=== PATIENT | female | born 1965 | race African-American/Black ===

== ENCOUNTER 2017-03-07 14:58 | Emergency (ER) | payer OTHER ==
[~2017-03-07] VITALS: Ht 154.9 cm; Wt 122.5 kg
[~2017-03-07 14:58] MED LIST: BYSTOLIC20 MG PO; CYCL10TA2 PO; HYDR-965 PO; NAPR250T2 PO; NEBI20TA4 PO
[2017-03-07 16:14] LABS: BASO # 0.1 x10^3/uL (0.0-0.2); BASO % 1 % (0-3); EOS % 6 % (0-3); HEMATOCRIT 35.6 % (36.0-47.0); HEMOGLOBIN 11.8 g/dL (12.0-15.5); LYMPH # 1.7 x10^3/uL (1.0-4.8); LYMPH % 33 % (24-48); MEAN CORPUSCULAR HEMOGLOBIN 27 pg (25-35); MEAN CORPUSCULAR HGB CONC 33 g/dL (31-37); MEAN CORPUSCULAR VOLUME 83 fL (79-100); MONO % 11 % (0-9); NEUT % 49 % (31-73); PLATELET COUNT 264 x10^3/uL (140-400); RED CELL DISTRIBUTION WIDTH 15.9 % (11.5-14.5); WHITE BLOOD COUNT 5.2 x10^3/uL (4.0-11.0)
[2017-03-07] MEDS ORDERED: LABETALOL 20 MG/4 ML DISP.SYRIN. IVP ONE (16:15)
--- NOTE | 2017-03-07 16:29 | PHYS DOC ---
Past Medical History Past Medical History: CVA, Hypertension, Other Additional Past Medical Histor: STROKE 2010, left sided weakness, "brain aneurysm" Past Surgical History: No Surgical History Additional Past Surgical Histo: Alex in LLE Alcohol Use: None Drug Use: None Adult General Chief Complaint Chief Complaint: HYPERTENSION HPI HPI Patient is a 51 year old female who presents with headache and elevated blood pressure. Patient reports she's had a cough, denies sinus drainage. Patient states the headache is intermittent and gradual in onset, she's had similar headaches in the past. She's been on for by systolic for a week and she ran out does not follow-up appointment for several days. She denies any chest pain or shortness of breath, no known fevers. She hasn't taken anything for her headache because she didn't have anything to take. Patient sees primary care physician at Dr. Roland Review of Systems Review of Systems Constitutional: Denies fever or chills [] Eyes: Denies change in visual acuity, redness, or eye pain [] HENT: Denies nasal congestion or sore throat [] Respiratory: Reports cough, denies shortness of breath [] Cardiovascular: Denies chest pain GI: Denies abdominal pain, nausea, vomiting, bloody stools or diarrhea [] : Denies dysuria or hematuria [] Musculoskeletal: Denies back pain or joint pain [] Integument: Denies rash or skin lesions [] Neurologic: Reports headache, denies focal weakness or sensory changes [] Current Medications Current Medications Current Medications Medications (Trade) Dose Ordered Sig/[place] Start Time Stop Time Status Last Admin Dose Admin Acetaminophen (Tylenol) 1,000 mg 1X ONCE 03/07/17 16:45 03/07/17 16:46 DC Labetalol HCl (Normodyne) 10 mg 1X ONCE 03/07/17 16:15 03/07/17 16:16 DC Allergies Allergies Allergies Coded Allergies Type Severity Reaction Last Updated Verified No Known Drug Allergies 06/26/13 No Physical Exam Physical Exam Constitutional: Well developed, well nourished, no acute distress, non-toxic appearance. [] HENT: Normocephalic, atraumatic, bilateral external ears normal, oropharynx moist, no oral exudates, nose normal. [] Eyes: PERRLA, EOMI, conjunctiva normal, no discharge. [] Neck: Normal range of motion, no tenderness, supple, no stridor. [] Cardiovascular:Heart rate regular with regular rhythm, no murmur [] Lungs & Thorax: Bilateral breath sounds clear to auscultation, no wheeze or crackles Abdomen: Bowel sounds normal, soft, no tenderness, no masses, no pulsatile masses. [] Skin: Warm, dry, no erythema, no rash. [] Back: No tenderness, no CVA tenderness. [] Extremities: No tenderness, no cyanosis, no clubbing, left upper extremity with contracture secondary to previous stroke Neurologic: Alert and oriented X 3, left-sided deficit secondary to previous stroke, unable to lift left shoulder, otherwise cranial nerves II through XII intact, no facial asymmetry Psychologic: Affect normal, judgement normal, mood normal. [] Current Patient Data Vital Signs Vital Signs Date Time Temp Pulse Resp B/P (MAP) Pulse Ox O2 Delivery O2 Flow Rate FiO2 03/07/17 16:12 84 18 147/79 (101) 97 Room Air 03/07/17 15:50 98.1 98.1 Lab Values Laboratory Tests Test 03/07/17 16:05 03/07/17 16:50 White Blood Count 5.2 x10^3/uL (4.0-11.0) Red Blood Count 4.30 x10^6/uL (3.50-5.40) Hemoglobin 11.8 g/dL (12.0-15.5) L Hematocrit 35.6 % (36.0-47.0) L Mean Corpuscular Volume 83 fL (79-100) Mean Corpuscular Hemoglobin 27 pg (25-35) Mean Corpuscular Hemoglobin Concent 33 g/dL (31-37) Red Cell Distribution Width 15.9 % (11.5-14.5) H Platelet Count 264 x10^3/uL (140-400) Neutrophils (%) (Auto) 49 % (31-73) Lymphocytes (%) (Auto) 33 % (24-48) Monocytes (%) (Auto) 11 % (0-9) H Eosinophils (%) (Auto) 6 % (0-3) H Basophils (%) (Auto) 1 % (0-3) Neutrophils # (Auto) 2.6 x10^3uL (1.8-7.7) Lymphocytes # (Auto) 1.7 x10^3/uL (1.0-4.8) Monocytes # (Auto) 0.6 x10^3/uL (0.0-1.1) Eosinophils # (Auto) 0.3 x10^3/uL (0.0-0.7) Basophils # (Auto) 0.1 x10^3/uL (0.0-0.2) Sodium Level 141 mmol/L (136-145) Potassium Level 3.2 mmol/L (3.5-5.1) L Chloride Level 103 mmol/L (98-107) Carbon Dioxide Level 26 mmol/L (21-32) Anion Gap 12 (6-14) Blood Urea Nitrogen 9 mg/dL (7-20) Creatinine 0.7 mg/dL (0.6-1.0) Estimated GFR (Cockcroft-Gault) 106.3 Glucose Level 130 mg/dL (70-99) H Calcium Level 9.1 mg/dL (8.5-10.1) Urine Collection Type Unknown Urine Color Yellow Urine Clarity Turbid Urine pH 5.5 Urine Specific Mcallister 1.025 Urine Protein Negative mg/dL (NEG-TRACE) Urine Glucose (UA) Negative mg/dL (NEG) Urine Ketones (Stick) Negative mg/dL (NEG) Urine Blood Negative (NEG) Urine Nitrite Positive (NEG) Urine Bilirubin Negative (NEG) Urine Urobilinogen Dipstick 0.2 mg/dL (0.2 mg/dL) Urine Leukocyte Esterase Negative (NEG) Urine RBC 0 /HPF (0-2) Urine WBC 1-4 /HPF (0-4) Urine Squamous Epithelial Cells Mod /LPF Urine Bacteria Many /HPF (0-FEW) Urine Mucus Marked /LPF Laboratory Tests 03/07/17 16:05 Laboratory Tests 03/07/17 16:05 EKG EKG [] 86 bpm, sinus, normal axis, QTC of 465, no ST elevation or depression, nonischemic T waves, interpreted by me Radiology/Procedures Radiology/Procedures CT head: Impression: No acute intracranial abnormality is seen. [] Course & Med Decision Making Course & Med Decision Making Pertinent Labs and Imaging studies reviewed. (See chart for details) Ordered 10mg labetalol and po tylenol. Labs/CT head ordered. Pt's blood pressure improved without intervention. CT head shows no acute bleed or abnormality on CT. Mild hypokalemia, po KCl given, pt does not have dysuria and UA not clean catch so no indication to treat. Will give RX for Bystolic for 2 weeks. Harini Disclaimer Harini Disclaimer This electronic medical record was generated, in whole or in part, using a voice recognition dictation system. Departure Departure Impression: Primary Impression: Hypertension Disposition: 02 TRANSFER [facility] Condition: STABLE Referrals: SVETLANA ROLAND (PCP) Patient Instructions: Hypertension Scripts Nebivolol Hcl (BYSTOLIC) 20 Mg Tablet 20 MG PO DAILY for 14 Days, #14 TAB Prov: ROSALINDA GAGNON MD 03/07/17 ROSALINDA GAGNON MD Mar 07, 2017 16:29
[2017-03-07 16:31] LABS: CALCIUM 9.1 mg/dL (8.5-10.1); CREATININE 0.7 mg/dL (0.6-1.0); GFR 106.3; POTASSIUM 3.2 mmol/L (3.5-5.1)
--- NOTE | 2017-03-07 16:38 | RAD ---
CT scan of the head without contrast 03/07/2017 Clinical history: Headaches for 2 days. Dizziness today. Technique: Unenhanced, contiguous, 5 mm axial sections were obtained through the head. One or more of the following individualized dose reduction techniques were utilized for this study: 1. Automated exposure control. 2. Adjustment of the mA and/or kV according to patient size. 3. Use of iterative reconstruction technique. Findings: No previous imaging studies are available for comparison. There is generalized parenchymal atrophy. Areas of decreased attenuation are seen within the white matter of both cerebral hemispheres consistent with areas of small vessel ischemic disease. A large area of encephalomalacia is seen involving portions of the right temporal, right frontal and right parietal lobes. No acute parenchymal abnormality is seen. No extra-axial fluid collection is noted. No skull fracture is seen. Impression: No acute intracranial abnormality is seen.
[2017-03-07] MEDS ORDERED: ACETAMINOPHEN 500 MG TABLET PO ONE (16:45)
[2017-03-07 17:06] LABS: BILIRUBIN,URINE NEGATIVE (NEG); GLUCOSE,URINE NEGATIVE (NEG); NITRITE,URINE POSITIVE (NEG); PH,URINE 5.5; PROTEIN,URINE NEGATIVE (NEG-TRACE); UROBILINOGEN,URINE 0.2 mg/dL (0.2 mg/dL)
[2017-03-07 17:14] LABS: BACTERIA,URINE MANY /HPF (0-FEW); RBC,URINE 0 /HPF (0-2); SQUAMOUS EPITHELIAL CELL,UR MOD /LPF
[2017-03-07] MEDS ORDERED: BYSTOLIC20 MG PO (17:25)
[2017-03-07] MEDS ORDERED: POTASSIUM CHLORIDE 20 MEQ TABLET.ER. PO ONE (17:30)
[2017-03-07 17:53] VITALS: BP 144/93
--- NOTE | 2017-03-08 06:23 | EKG ---
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
--- NOTE | 2017-03-09 16:41 | VNOTE ---
CALL BACK NOTE CALL BACK Microbiology 03/07/17 Urine Culture - Final, Complete 03/07/17 Urine Culture Result 1 (NATTY) - Final, Complete 03/07/17 Antimicrobic Susceptibility - Final, Complete Patient was noted to have Klebsiella pneumoniae, patient was notified by phone with prescription called to [facility] on . Bactrim DS is sensitive to this infection. Bactrim DS was called in for the patient. ALESHIA LOOMIS APRN Mar 09, 2017 16:41
== END 2017-03-07 18:08 | disposition home or self-care (01) ==
LOC: ER 14:58
DX: I10 Essential (primary) hypertension (principal); R05 Cough; I67.1 Cerebral aneurysm, nonruptured; Z86.73 Personal history of transient ischemic attack (TIA), and cerebral infarction without residual deficits
CPT/HCPCS: 36415; 70450; 80048; 81001; 85025; 87086; 93005; 99285-25

== ENCOUNTER 2019-10-18 21:10 | Emergency (ER) | payer MEDICAID, OTHER ==
[~2019-10-18] VITALS: Ht 154.9 cm; Wt 114.0 kg
[~2019-10-18 21:10] MED LIST changes: +HYDR-3165 PO; -HYDR-965 PO; -NAPR250T2 PO; +NAPR250T6 PO
--- NOTE | 2019-10-18 21:43 | PHYS DOC ---
Past Medical History Past Medical History: CVA, Hypertension, Other Additional Past Medical Histor: STROKE 2010, left sided weakness, "brain aneurysm" Past Surgical History: No Surgical History Additional Past Surgical Histo: Alex in LLE Smoking Status: Former Smoker Alcohol Use: None Drug Use: None General Adult EDM: Chief Complaint: HEADACHE HPI: HPI: 54-year-old female presents to the emergency department complaints of bilateral lower extremity pain, left worse than right. Chronic left lower extremity that is cool, not new. Patient has chronic lower extremity pain already. She describes pain increasing over the last week. She denies any chest pain, shortness of breath, nausea, vomiting. She has a history of hypertension, diabetes, CVA with left-sided hemiparesis. Walking makes her pain worse. Patient's blood pressure is 209/76 saturations 98%, heart rate 99. Patient is afebrile. She denies any complaints other than her chronic lower extremity pain worsening over the last week as previously described. Review of Systems: Review of Systems: Constitutional: Denies fever or chills. [] Respiratory: Denies cough or shortness of breath. [] Cardiovascular: Denies chest pain or edema. [] GI: Denies abdominal pain, nausea, vomiting, bloody stools or diarrhea. [] Musculoskeletal: Bilateral lower extremity pain Integument: Denies rash. [] Neurologic: Denies headache, focal weakness or sensory changes. [] Heart Score: Risk Factors: Risk Factors: DM, Current or recent (<one month) smoker, HTN, HLP, family history of CAD, obesity. Risk Scores: Score 0 - 3: 2.5% MACE over next 6 weeks - Discharge Home Score 4 - 6: 20.3% MACE over next 6 weeks - Admit for Clinical Observation Score 7 - 10: 72.7% MACE over next 6 weeks - Early Invasive Strategies Allergies: Allergies: Allergies Coded Allergies Type Severity Reaction Last Updated Verified No Known Drug Allergies 06/26/13 No Physical Exam: PE: Constitutional: Well developed, well nourished, no acute distress, non-toxic appearance. [] Cardiovascular:Heart rate regular rhythm, no murmur [] Lungs & Thorax: Bilateral breath sounds clear to auscultation [] Abdomen: Bowel sounds normal, soft, no tenderness, no masses, no pulsatile masses. [] Skin: Warm, dry, no erythema, no rash. [] Back: No tenderness, no CVA tenderness. [] Extremities: No tenderness, positive edema bilateral lower extremities left greater than right, history of surgery left lower extremity [] Neurologic: Alert and oriented X 3, no focal deficits noted. [] Psychologic: Affect normal, judgement normal, mood normal. [] EKG: EKG: EKG reviewed, sinus rhythm, heart rate 97, left axis deviation, interpretation time 2143, no STEMI [] Radiology/Procedures: Radiology/Procedures: [] Course & Med Decision Making: Course & Med Decision Making Pertinent Labs and Imaging studies reviewed. (See chart for details) [] 54-year-old female presents to the emergency department complaints of bilateral lower extremity pain, left worse than right. Patient has chronic lower extremity pain already. She describes pain increasing over the last week. She denies any chest pain, shortness of breath, nausea, vomiting. She has a history of hypertension, diabetes, CVA with left-sided hemiparesis. Walking makes her pain worse. Patient's blood pressure is 209/76 saturations 98%, heart rate 99. Patient is afebrile. She denies any complaints other than her chronic lower extremity pain worsening over the last week as previously described. Labs and imaging reviewed Patient provided with hydralazine 10 mg IV x1 given her blood pressure elevation CPK is 200, BNP mildly elevated at 1200 Recommend follow the primary care physician as an outpatient. Recommend discharge as patient home. Harini Disclaimer: Harini Disclaimer: This electronic medical record was generated, in whole or in part, using a voice recognition dictation system. Departure Departure Impression: Primary Impression: Chronic lower limb pain Qualified Codes: M79.604 - Pain in right leg; M79.605 - Pain in left leg; G89.29 - Other chronic pain Additional Impression: Hypertension Qualified Codes: I10 - Essential (primary) hypertension Disposition: 01 HOME, SELF-CARE Condition: STABLE Referrals: SVETLANA ROLAND (PCP) Patient Instructions: Hypertension, Pain of Unknown Etiology (Pain without a known Cause) Additional Instructions: Recommend follow up with PCP No acute findings Hydralazine 10mg IV x 1 BP medication unknown by patient/famikly Labs without findings of acute process DAVID GREEN MD Oct 18, 2019 21:43
[2019-10-18 22:34] LABS: BASO % 1 % (0-3); EOS # 0.2 x10^3/uL (0.0-0.7); EOS % 5 % (0-3); HEMATOCRIT 34.5 % (36.0-47.0); HEMOGLOBIN 11.3 g/dL (12.0-15.5); LYMPH # 0.9 x10^3/uL (1.0-4.8); LYMPH % 21 % (24-48); MEAN CORPUSCULAR HEMOGLOBIN 27 pg (25-35); MEAN CORPUSCULAR HGB CONC 33 g/dL (31-37); MEAN CORPUSCULAR VOLUME 83 fL (79-100); MONO # 0.3 x10^3/uL (0.0-1.1); MONO % 6 % (0-9); NEUT # 3.1 x10^3/uL (1.8-7.7); NEUT % 68 % (31-73); PLATELET COUNT 385 x10^3/uL (140-400); RED BLOOD COUNT 4.17 x10^6/uL (3.50-5.40); RED CELL DISTRIBUTION WIDTH 15.6 % (11.5-14.5); WHITE BLOOD COUNT 4.5 x10^3/uL (4.0-11.0)
[2019-10-18 22:57] LABS: ALBUMIN 3.3 g/dL (3.4-5.0); ALBUMIN/GLOBULIN RATIO 0.6 (1.0-1.7); TOTAL PROTEIN 8.5 g/dL (6.4-8.2)
[2019-10-18 22:58] LABS: CALCIUM 9.5 mg/dL (8.5-10.1); CREATININE 0.7 mg/dL (0.6-1.0); GFR 105.1; TOTAL BILIRUBIN 0.2 mg/dL (0.2-1.0)
[2019-10-18 22:59] LABS: POTASSIUM 4.2 mmol/L (3.5-5.1)
[2019-10-18 23:00] VITALS: BP 180/90
[2019-10-18] MEDS ORDERED: hydrALAZINE 20 MG/ML VIAL. IVP ONE (23:00)
[2019-10-18] MEDS ORDERED: traMADol 50 MG TABLET PO ONE (23:00)
--- NOTE | 2019-10-19 20:10 | EKG ---
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
== END 2019-10-18 23:40 | disposition home or self-care (01) ==
LOC: ER 21:10
DX: G89.29 Other chronic pain (principal); M79.605 Pain in left leg; M79.604 Pain in right leg; I10 Essential (primary) hypertension; Z86.73 Personal history of transient ischemic attack (TIA), and cerebral infarction without residual deficits; Z87.891 Personal history of nicotine dependence
CPT/HCPCS: 36415; 80053; 82550; 83880; 85025; 93005; 96374; 99284; J0360

== ENCOUNTER 2020-08-10 21:41 | Emergency (ER) | payer MEDICAID ==
[~2020-08-10] VITALS: Ht 157.5 cm; Wt 81.8 kg
[~2020-08-10 21:41] MED LIST changes: +NAPR-699 PO; -NAPR250T6 PO
[2020-08-10] MEDS ORDERED: HYDROcodone/APAP 5/325MG 1 TAB TABLET PO ONE (22:30)
[2020-08-10 22:44] LABS: BASO % 1 % (0-3); EOS # 0.4 x10^3/uL (0.0-0.7); EOS % 6 % (0-3); HEMATOCRIT 35.3 % (36.0-47.0); HEMOGLOBIN 11.5 g/dL (12.0-15.5); LYMPH # 1.4 x10^3/uL (1.0-4.8); LYMPH % 20 % (24-48); MEAN CORPUSCULAR HEMOGLOBIN 27 pg (25-35); MEAN CORPUSCULAR HGB CONC 32 g/dL (31-37); MEAN CORPUSCULAR VOLUME 83 fL (79-100); MONO # 0.7 x10^3/uL (0.0-1.1); MONO % 10 % (0-9); NEUT # 4.5 x10^3/uL (1.8-7.7); NEUT % 63 % (31-73); PLATELET COUNT 393 x10^3/uL (140-400); RED BLOOD COUNT 4.25 x10^6/uL (3.50-5.40); RED CELL DISTRIBUTION WIDTH 15.4 % (11.5-14.5)
--- NOTE | 2020-08-10 22:51 | ED.ADGEN ---
Past Medical History Past Medical History: CVA, Hypertension, Other Additional Past Medical Histor: STROKE 2010, left sided weakness, "brain ane urysm" Past Surgical History: No Surgical History Additional Past Surgical Histo: Alex in LLE Smoking Status: Current Every Day Smoker Alcohol Use: None Drug Use: None General Adult EDM: Chief Complaint: LOWER EXT PAIN HPI: HPI: Patient is a 54 year old female brought in by EMS after a fall. Patient states she was getting up from the commode and got lightheaded and fell forward onto her knees. States she slightly hit her head against the wall but not hard. Denies any loss of consciousness. Patient states she has felt lightheaded with some blurred vision. [place] well immediately afterwards. Denies any shortness of breath, chest pain. States she otherwise has been well recently. Fell forward onto her knees and lower legs and complaining of pain in bilateral extremities from the knees down. Patient has a history of prior CVA with left leg weakness. Patient normally ambulates with a cane. Denies any numbness or paresthesias in her lower extremities. No hip pain, neck pain, back pain. Patient was able to get up with assistance afterwards. Review of Systems: Review of Systems: All other systems within normal limits except for as noted in the HPI Current Medications: Current Medications Medications (Trade) Dose Ordered Sig/[facility] Start Time Stop Time Status Last Admin Dose Admin Acetaminophen/ Hydrocodone Bitart (Lortab 5/325) 1 tab 1X ONCE 08/10/20 22:30 08/10/20 22:31 Cancel Carvedilol (Coreg) 12.5 mg 1X ONCE 08/10/20 23:45 08/10/20 23:46 DC 08/10/20 23:45 12.5 MG Sodium Chloride 500 ml @ 500 mls/hr 1X ONCE 08/10/20 23:30 08/11/20 00:29 DC 08/10/20 23:22 500 MLS/HR Allergies: Allergies: Allergies Coded Allergies Type Severity Reaction Last Updated Verified acetaminophen Allergy Severe RASH 08/10/20 Yes Physical Exam: PE: Constitutional: Well developed, well nourished, no acute distress, non-toxic appearance. [] HENT: Normocephalic, atraumatic, bilateral external ears normal, nose normal. [] Eyes: PERRLA, conjunctiva normal, no discharge. [] Neck: No rigidity, supple, no stridor. [] Cardiovascular: Regular rate and rhythm, brisk cap refill [] Lungs & Thorax: Non labored symmetric respirations, no tachypnea or respiratory distress [] Abdomen: Soft, nondistended, no tenderness of hips or pelvis. Skin: Warm, dry, no erythema, no rash, no abrasion. [] Back: Unremarkable Extremities: No deformities, range of motion grossly intact, no lower extremity edema. Tenderness of the knees, tib-fib, ankle and foot. No deformities. [] Neurologic: Alert and oriented X 3, no focal deficits noted other than weakness of left leg which patient states is baseline. [] Psychologic: Affect normal, judgement normal, mood normal. [] Current Patient Data: Labs: Laboratory Tests Test 08/10/20 22:33 White Blood Count 7.0 x10^3/uL (4.0-11.0) Red Blood Count 4.25 x10^6/uL (3.50-5.40) Hemoglobin 11.5 g/dL (12.0-15.5) L Hematocrit 35.3 % (36.0-47.0) L Mean Corpuscular Volume 83 fL (79-100) Mean Corpuscular Hemoglobin 27 pg (25-35) Mean Corpuscular Hemoglobin Concent 32 g/dL (31-37) Red Cell Distribution Width 15.4 % (11.5-14.5) H Platelet Count 393 x10^3/uL (140-400) Neutrophils (%) (Auto) 63 % (31-73) Lymphocytes (%) (Auto) 20 % (24-48) L Monocytes (%) (Auto) 10 % (0-9) H Eosinophils (%) (Auto) 6 % (0-3) H Basophils (%) (Auto) 1 % (0-3) Neutrophils # (Auto) 4.5 x10^3/uL (1.8-7.7) Lymphocytes # (Auto) 1.4 x10^3/uL (1.0-4.8) Monocytes # (Auto) 0.7 x10^3/uL (0.0-1.1) Eosinophils # (Auto) 0.4 x10^3/uL (0.0-0.7) Basophils # (Auto) 0.0 x10^3/uL (0.0-0.2) Sodium Level 135 mmol/L (136-145) L Potassium Level 4.7 mmol/L (3.5-5.1) Chloride Level 100 mmol/L (98-107) Carbon Dioxide Level 27 mmol/L (21-32) Anion Gap 8 (6-14) Blood Urea Nitrogen 15 mg/dL (7-20) Creatinine 0.6 mg/dL (0.6-1.0) Estimated GFR (Cockcroft-Gault) 125.6 BUN/Creatinine Ratio 25 (6-20) H Glucose Level 100 mg/dL (70-99) H Calcium Level 9.4 mg/dL (8.5-10.1) Total Bilirubin 0.2 mg/dL (0.2-1.0) Aspartate Amino Transferase (AST) 20 U/L (15-37) Alanine Aminotransferase (ALT) 22 U/L (14-59) Alkaline Phosphatase 111 U/L (46-116) Troponin I Quantitative < 0.017 ng/mL (0.000-0.055) VQ-Vlu-O-Type Natriuretic Peptide 255 pg/mL (0-124) H Total Protein 8.7 g/dL (6.4-8.2) H Albumin 3.1 g/dL (3.4-5.0) L Albumin/Globulin Ratio 0.6 (1.0-1.7) L Laboratory Tests 08/10/20 22:33 Laboratory Tests 08/10/20 22:33 Vital Signs: Vital Signs Date Time Temp Pulse Resp B/P (MAP) Pulse Ox O2 Delivery O2 Flow Rate FiO2 08/10/20 23:45 107 207/111 08/10/20 21:46 98.4 24 96 Room Air 98.4 EKG: EKG: Sinus tachycardia, heart rate [address] elevation or depression [] Heart Score: Risk Factors: Risk Factors: DM, Current or recent (<one month) smoker, HTN, HLP, family history of CAD, obesity. Risk Scores: Score 0 - 3: 2.5% MACE over next 6 weeks - Discharge Home Score 4 - 6: 20.3% MACE over next 6 weeks - Admit for Clinical Observation Score 7 - 10: 72.7% MACE over next 6 weeks - Early Invasive Strategies Radiology/Procedures: Radiology/Procedures: INDICATION: Reason: fall / Spl. Instructions: / History: COMPARISON: None. IMPRESSION: Right foot: 3 views obtained. Edema of soft tissues. Degenerative changes. Plantar calcaneal spur. No definite acute fracture line is seen. Left foot: 3 views obtained. Plate and screws at distal fibula and screws at distal tibia. Edema of soft tissues. Degenerative changes. No definite acute fracture line is seen. Left knee: 3 views obtained. Degenerative changes are identified with mild joint space narrowing and osteophyte formation. Small joint effusion. No definite acute fracture. Right knee: 3 views obtained. Degenerative changes with medial joint space narrowing and early osteophyte formation. Degenerative changes at the patellofemoral compartment with subchondral cyst formation. There is some edema of Hoffa's fat pad. No acute fracture or dislocation. Right tibia and fibula: 2 views obtained. Edema of soft tissues. No definite acute fracture. Left tibia and fibula: 2 views obtained. Plate and screws at distal fibula with screws at distal tibia. Edema of soft tissues. No definite acute fracture. [] Course & Med Decision Making: Course & Med Decision Making Pertinent Labs and Imaging studies reviewed. (See chart for details) Imaging unremarkable. Patient feeling better. Will start on low-dose of her blood pressure medication and given information to find a primary care provider to titrate her blood pressure medication up as needed [] Harini Disclaimer: Harini Disclaimer: This electronic medical record was generated, in whole or in part, using a voice recognition dictation system. Departure Departure Impression: Primary Impression: Fall Additional Impression: Bilateral leg and foot pain Disposition: 01 DC HOME SELF CARE/HOMELESS Condition: STABLE Referrals: NO PCP (PCP) Patient Instructions: Fall Prevention and Home Safety Additional Instructions: Brad [facility] [address] [place] [address] [facility] [address] [place] [address] [facility] [address] [facility] [place] [address] [facility] [address] [place] [address] [facility] [address] [place] [address] [facility] [address] [place] [address] [place] [address] [address] [place] [address] [facility] [address] [place] [address] [facility] [address] [place] [address] [facility] Department [address] [place] [address] Scripts Nebivolol Hcl (BYSTOLIC) 5 Mg Tablet 5 MG PO DAILY for hypertension for 30 Days, #30 TAB Prov: MICHELLE RAMACHANDRAN MD 08/11/20 Problem Qualifiers MICHELLE RAMACHANDRAN MD Aug 10, 2020 22:51
[2020-08-10 22:57] LABS: CALCIUM 9.4 mg/dL (8.5-10.1); CREATININE 0.6 mg/dL (0.6-1.0); GFR 125.6; POTASSIUM 4.7 mmol/L (3.5-5.1)
[2020-08-10 23:03] LABS: ALBUMIN 3.1 g/dL (3.4-5.0); ALBUMIN/GLOBULIN RATIO 0.6 (1.0-1.7); TOTAL BILIRUBIN 0.2 mg/dL (0.2-1.0); TOTAL PROTEIN 8.7 g/dL (6.4-8.2)
[2020-08-10] MEDS ORDERED: IV NORMAL SALINE 500ML BAG 500 ML IV ONE (23:30)
[2020-08-10] MEDS ORDERED: CARVEDILOL 12.5 MG TABLET. PO ONE (23:45)
--- NOTE | 2020-08-10 23:47 | RAD ---
INDICATION: Reason: fall / Spl. Instructions: / History: COMPARISON: None. IMPRESSION: Right foot: 3 views obtained. Edema of soft tissues. Degenerative changes. Plantar calcaneal spur. No definite acute fracture line is seen. Left foot: 3 views obtained. Plate and screws at distal fibula and screws at distal tibia. Edema of s oft tissues. Degenerative changes. No definite acute fracture line is seen. Left knee: 3 views obtained. Degenerative changes are identified with mild joint space narrowing and osteophyte formation. Small joint effusion. No definite acute fracture. Right knee: 3 views obtained. Degenerative changes with medial joint space narrowing and early osteop hyte formation. Degenerative changes at the patellofemoral compartment with subchondral cyst formatio n. There is some edema of Hoffa's fat pad. No acute fracture or dislocation. Right tibia and fibula: 2 views obtained. Edema of soft tissues. No definite acute fracture. Left tibia and fibula: 2 views obtained. Plate and screws at distal fibula with screws at distal tibi a. Edema of soft tissues. No definite acute fracture. Electronically signed by: Domenic Doherty MD (08/10/2020 11:45 PM) [id number]
[2020-08-11] MEDS ORDERED: BYSTOLIC5 MG PO (00:44)
[2020-08-11 00:45] VITALS: BP 181/78
--- NOTE | 2020-08-11 08:33 | EKG ---
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
== END 2020-08-11 01:49 | disposition home or self-care (01) ==
LOC: ER 21:41
DX: G89.11 Acute pain due to trauma (principal); M79.671 Pain in right foot; M79.672 Pain in left foot; M25.561 Pain in right knee; M25.562 Pain in left knee; H53.8 Other visual disturbances; R42 Dizziness and giddiness; I10 Essential (primary) hypertension; F17.200 Nicotine dependence, unspecified, uncomplicated; I25.2 Old myocardial infarction; Z86.73 Personal history of transient ischemic attack (TIA), and cerebral infarction without residual deficits; Z98.890 Other specified postprocedural states; Z88.2 Allergy status to sulfonamides; W18.39XA Other fall on same level, initial encounter; Y93.89 Activity, other specified; Y92.89 Other specified places as the place of occurrence of the external cause; Y99.8 Other external cause status
CPT/HCPCS: 36415; 73562; 73590; 73630; 80053; 83880; 84484; 85025; 93005; 96360; 96361; 99285; J7040